=== PATIENT | female | born 1960 ===

== ENCOUNTER 2017-03-23 02:19 | Emergency (ER) | payer MEDICAID ==
[2017-03-23 02:19] VITALS: BMI 37.1
[2017-03-23 02:52] VITALS: TEMP 98.3
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
[2017-03-23] MEDS ORDERED: Labetalol 5 mg/ml Inj 20ML IV STA ×2 (05:03→05:48)
[2017-03-23 06:02] VITALS: RESP 16
[2017-03-23 06:22] VITALS: BP 171/98; PULSE 81; O2SAT 97
--- NOTE | 2017-03-23 23:50 | CARD ---
APPROVED REPORT EKG Measurement Heart [id number] <Conclusion> Normal sinus rhythm Voltage criteria for left ventricular hypertrophy Abnormal ECG
== END 2017-03-23 06:20 | disposition home or self-care (01) ==
LOC: ED 02:19
DX: I10 Essential (primary) hypertension (principal); E11.9 Type 2 diabetes mellitus without complications; Z82.49 Family history of ischemic heart disease and other diseases of the circulatory system; M19.90 Unspecified osteoarthritis, unspecified site
CPT/HCPCS: 82948; 93005; 96372; 99284; J1885

== ENCOUNTER 2018-01-12 19:52 | Emergency (ER) | payer MEDICAID, OTHER ==
[2018-01-12 19:52] VITALS: BMI 37.1
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
--- NOTE | 2018-01-12 21:36 | CT ---
EXAM: CT Head Without Intravenous Contrast CLINICAL HISTORY: 57 years old, female; Pain; Headache; Tension TECHNIQUE: Axial computed tomography images of the head/brain without intravenous contrast. All CT scans at this facility use one or more dose reduction techniques, viz.: automated exposure control; ma/kV adjustment per patient size (including targeted exams where dose is matched to indication; i.e. head); or iterative reconstruction technique. Coronal and sagittal reformatted images were created and reviewed. COMPARISON: No relevant prior studies available. FINDINGS: Brain: No intracranial hemorrhage. No mass. Few scattered subtle foci of decreased attenuation within periventricular/subcortical white matter. No definite edema. Ventricles: No hydrocephalus. Bones/joints: No acute fracture. Soft tissues: Unremarkable. Vasculature: Minimal atherosclerotic disease of intracranial arteries. Sinuses: No acute sinusitis. Mastoid air cells: No mastoid effusion. Orbits: Unremarkable as visualized. Sella: Elongated pituitary gland, 1.3 cm in AP dimension. IMPRESSION: 1. Nonspecific white matter changes. Acute infarction may be CT occult within first 24 hours. If a focal deficit persists, consider followup CT or MRI for further evaluation. 2. Incidental/non-acute findings are described above.
[2018-01-12 23:32] VITALS: BP 131/77; PULSE 56; RESP 17; TEMP 98.1; O2SAT 99
== END 2018-01-12 23:32 | disposition home or self-care (01) ==
LOC: ED 19:52
DX: I10 Essential (primary) hypertension (principal); R51 Headache; E11.9 Type 2 diabetes mellitus without complications

== ENCOUNTER 2018-04-08 20:52 | Emergency (ER) | payer OTHER ==
[2018-04-08 20:52] VITALS: BMI 37.1
[2018-04-08 21:20] VITALS: TEMP 98.7
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
[2018-04-08 22:25] LABS: BASO # 0.02 K/mm3 (0.0-2.0); BASO % 0.5 % (0.0-3.0); EOS # 0.1 (0.0-0.7); GRAN # 2.21 (1.4-6.5); GRAN % 54.4 % (50.0-68.0); HEMOGLOBIN 13.5 g/dL (12.0-16.0); LYMPH # 1.3 (1.2-3.4); MEAN CELL VOLUME 84.9 fl (80.0-105.0); MEAN CORPUSCULAR HEMOGLOBIN 29.2 pg (25.0-35.0); MEAN CORPUSCULAR HGB CONC 34.4 g/dl (31.0-37.0); MONO # 0.4 (0.1-0.6); MONO % 10.1 % (1.0-6.0); RBC 4.63 10^6/uL (3.5-6.1); RED CELL DISTRIBUTION WIDTH 14.3 % (11.5-14.5); WHITE BLOOD COUNT 4.1 10^3/ul (4.5-11.0)
[2018-04-08 22:34] LABS: ALB/GLOB RATIO 1.2 (1.1-1.8); ALBUMIN 4.4 g/dL (3.0-4.8); ALT/SGPT 32 U/L (7-56); AST/SGOT 36 U/L (14-36); BLOOD UREA NITROGEN 17 mg/dL (7-21); CALCIUM 9.1 mg/dL (8.4-10.5); GFR AFRICAN-AMERICAN > 60; GFR NON-AFRICAN AMERICAN > 60; LIPASE 140 U/L (23-300)
[2018-04-08 22:48] LABS: URINE BILIRUBIN NEGATIVE (NEGATIVE); URINE BLOOD SMALL (NEGATIVE); URINE GLUCOSE (UA) NEGATIVE (NEGATIVE); URINE LEUKOCYTE ESTERASE NEGATIVE Leu/uL (NEGATIVE); URINE PROTEIN TRACE mg/dL (<30 mg/dL); URINE UROBILINOGEN 0.2 E.U./dL (<1 E.U./dL)
[2018-04-08] MEDS ORDERED: Sodium Chloride 0.9% 1,000 ML IV SCH (23:15)
[2018-04-08 23:16] LABS: URINE APPEARANCE CLEAR (CLEAR); URINE COLOR YELLOW (YELLOW)
[2018-04-08] MEDS ORDERED: Iohexol 350 MG/100 ML VIAL ONE (23:19)
[2018-04-08 23:29] LABS: URINE EPITHELIAL CELLS 0 - 2 /hpf (0-5); URINE RBC 0 - 2 /hpf (0-2); URINE WBC 0 - 2 /hpf (0-6)
[2018-04-09] MEDS ORDERED: Morphine 2 mg/ml ISec IVP STA (00:43)
[2018-04-09 01:18] VITALS: RESP 18
[2018-04-09] MEDS ORDERED: Labetalol 5 mg/ml Inj 20ML IV STA (01:48)
[2018-04-09 02:27] VITALS: BP 176/97; PULSE 67
[2018-04-09 02:40] VITALS: O2SAT 100
--- NOTE | 2018-04-09 08:23 | CARD ---
APPROVED REPORT EKG Measurement Heart [id number] <Conclusion> Sinus bradycardia PRWP Left ventricular hypertrophy NSSTW changes, improved c/w ECG 08/03/17
--- NOTE | 2018-04-09 08:27 | CT ---
PROCEDURE: CT Abdomen and Pelvis without intravenous contrast HISTORY: abd pain COMPARISON: 08/03/2017. TECHNIQUE: Technique. Contrast dose: Radiation dose: Total exam DLP = mGy-cm. This CT exam was performed using one or more of the following dose reduction techniques: Automated exposure control, adjustment of the mA and/or kV according to patient size, and/or use of iterative reconstruction technique. FINDINGS: LOWER THORAX: Unremarkable. LIVER: Unremarkable. No gross lesion or ductal dilatation. GALLBLADDER AND BILE DUCTS: Cholecystectomy. PANCREAS: Unremarkable. No gross lesion or ductal dilatation. SPLEEN: Unremarkable. ADRENALS: Unremarkable. No mass. KIDNEYS AND URETERS: Unremarkable. No hydronephrosis. No solid mass. VASCULATURE: Unremarkable. No aortic aneurysm. BOWEL: Unremarkable. No obstruction. No gross mural thickening. APPENDIX: Unremarkable. Normal appendix. PERITONEUM: Unremarkable. No free fluid. No free air. LYMPH NODES: Unremarkable. No enlarged lymph nodes. BLADDER: Unremarkable. REPRODUCTIVE: Leiomyomatous uterus. BONES: No acute fracture. OTHER FINDINGS: None. IMPRESSION: No change. No acute pathology.
== END 2018-04-09 02:41 | disposition home or self-care (01) ==
LOC: ED 20:52
DX: R10.9 Unspecified abdominal pain (principal); E11.9 Type 2 diabetes mellitus without complications; I10 Essential (primary) hypertension
CPT/HCPCS: 74177; 80053; 81001; 83690; 83735; 85025; 93005; 96374; 96375; 99284; C9113; J2270; J2405; J7030; Q9967